=== PATIENT | female | born 1950 | race Caucasian/White ===

== ENCOUNTER 2022-12-27 06:05 | Day surgery (SDC) | payer MEDICARE ==
[2022-12-26 12:16] LABS: BASOPHILS % (AUTO) 0.5 % (0-1); EOSINOPHILS # (AUTO) 0.1 X10'3 (0-0.9); EOSINOPHILS % (AUTO) 0.9 % (0-6); HEMATOCRIT 44.2 % (35.0-45.0); HEMOGLOBIN 14.6 g/dl (12.0-16.0); LYMPHOCYTES # (AUTO) 1.4 X10'3 (1.1-4.8); LYMPHOCYTES % (AUTO) 19.5 % (21-51); MEAN PLATELET VOLUME 8.7 FL (7.4-10.4); MONOCYTES # (AUTO) 0.5 X10'3 (0-0.9); MONOCYTES % (AUTO) 6.6 % (2-12); NEUTROPHILS # (AUTO) 5.3 X10'3 (1.8-7.7); NEUTROPHILS % (AUTO) 72.5 % (42-75); PLATELET COUNT 232 X10'3 (140-440); RED BLOOD COUNT 4.86 X10'6 (4.20-5.60); RED CELL DISTRIBUTION WIDTH 12.9 % (11.5-14.5); WHITE BLOOD COUNT 7.3 X10'3 (4.5-11.0)
[2022-12-26 12:22] LABS: ALBUMIN 3.8 G/DL (3.4-5.0); ANION GAP 9 (8-16); BLOOD UREA NITROGEN 10 MG/DL (7-18); BUN/CREATININE RATIO 10.9 (6.6-38.0); CALCIUM 9.4 MG/DL (8.5-10.1); CHLORIDE 103 MMOL/L (99-107); CREATININE 0.92 MG/DL (0.40-0.90); GLUCOSE 89 MG/DL (70-104); POTASSIUM 3.8 MMOL/L (3.5-5.1); SODIUM 141 MMOL/L (135-145); TOTAL CARBON DIOXIDE 28.9 MMOL/L (24-32); eGFR 60 ML/MIN
[2022-12-26 12:23] LABS: APTT 25 SECONDS (22-32)
[~2022-12-27] VITALS: Ht 154.9 cm; Wt 59.8 kg
[2022-12-27] VITALS (12 sets, daily range): BP systolic 101–149; BP diastolic 44–71
[2022-12-27] MEDS ORDERED: diphenhydrAMINE 25mg capsule PO PRN (06:25)
[2022-12-27] MEDS ORDERED: normal saline 1,000 ML IV SCH (06:25)
[2022-12-27] MEDS ORDERED: LORazepam 0.5 MG tablet PO PRN (06:25)
[2022-12-27] MEDS ORDERED: ROSU10TA28 PO (06:26)
[2022-12-27] MEDS ORDERED: MULT-1085 PO (06:51)
[2022-12-27] MEDS ORDERED: CALC-97 PO (06:51)
[2022-12-27] MEDS ORDERED: nitroGLYCERIN-Tridil 50MG/D5W 250 ML IV ONE (07:21)
[2022-12-27] MEDS ORDERED: verapamil 2.5 mg/ml inj IV ONE (07:21)
[2022-12-27] MEDS ORDERED: iohexol 350MG/ML 100ml bottle IV ONE (07:22)
[2022-12-27] MEDS ORDERED: iohexol 350 MG/ML 50ML vial IV ONE (07:22)
[2022-12-27] MEDS ORDERED: heparin 1,000unit/ml 10ml vial 10 ML ONE (07:22)
[2022-12-27] MEDS ORDERED: midazolam 1 mg/ML 2ml injection ONE (07:22)
[2022-12-27] MEDS ORDERED: fentaNYL/PF 50MCG/1 ML 2ML syringe ONE (07:22)
[2022-12-27] MEDS ORDERED: LIDOcaine 1% (10mg/ml) 2ml vial ONE (07:23)
[2022-12-27] MEDS ORDERED: FLU VACC QS2022-23(6MOS UP)/PF 60 MCG/0.5 ML SYRINGE IMVAC ONE (07:45)
[2022-12-27] MEDS ORDERED: LIDOcaine 1% 30ml preserv. free vial ONE (08:30)
[2022-12-27] MEDS ORDERED: normal saline 1000ml 1,000 ML IV SCH (09:40)
[2022-12-27] MEDS ORDERED: normal saline 1000ml 1,000 ML IV ONE (09:40)
== END 2022-12-27 14:00 | disposition home or self-care (01) ==
LOC: SSTAY O 06:05
PROVIDERS: ATTEND Internal Medicine Cardiovascular Disease
DX: R94.31 Abnormal electrocardiogram [ECG] [EKG] (principal); R07.89 Other chest pain; R53.83 Other fatigue; I25.10 Atherosclerotic heart disease of native coronary artery without angina pectoris; I10 Essential (primary) hypertension; E78.5 Hyperlipidemia, unspecified; M81.0 Age-related osteoporosis without current pathological fracture; J84.89 Other specified interstitial pulmonary diseases; Z23 Encounter for immunization; Z85.820 Personal history of malignant melanoma of skin; Z98.890 Other specified postprocedural states; Z72.89 Other problems related to lifestyle; Z88.8 Allergy status to other drugs, medicaments and biological substances; Z82.49 Family history of ischemic heart disease and other diseases of the circulatory system; Z80.9 Family history of malignant neoplasm, unspecified
CPT/HCPCS: 36415; 76937; 80048; 85025; 85610; 85730; 90686; 93005; 93458; 99152; 99153; C1760; C1769; C1894; G0008; J1644; J2250; J3010; J3490; J7030; Q0163; Q9967; C1725